=== PATIENT | male | born 1950 | race Two or more races ===

== ENCOUNTER 2019-11-23 21:19 | Inpatient (IN) | payer MEDICARE ==
[~2019-11-23] VITALS: Ht 172.7 cm; Wt 84.8 kg
[2019-11-23 23:04] LABS: BASOPHILS % 0.6 % (0.0-2.0); EOSINOPHILS % 0.7 % (0.0-5.0); HEMATOCRIT. 46.6 % (42.0-52.0); HEMOGLOBIN. 15.5 g/dL (14.0-18.0); LYMPHOCYTES % 26.1 % (20.0-50.0); MEAN CORPUSCULAR HEMOGLOBIN 27.8 pg (28.0-32.0); MEAN CORPUSCULAR VOLUME 83.5 fL (80.0-94.0); MEAN PLATELET VOLUME 8.3 fl (7.4-10.4); MONOCYTES % 7.4 % (2.0-8.0); NEUTROPHILS % 65.2 % (40.0-76.0); PLATELET 208 x1000/uL (130-400); RED BLOOD CELL COUNT 5.58 mill/uL (4.7-6.1)
[2019-11-23 23:12] LABS: CHLORIDE 108 mEq/L (98-107)
[2019-11-23 23:13] LABS: PARTIAL THROMBOPLASTIN TIME 26.6 sec (23.4-31.0); PROTHROMBIN TIME 10.7 sec (9.6-11.0)
[2019-11-23] MEDS ORDERED: ASPIRIN 325MG TABLET PO ONE (23:45)
[2019-11-24] MEDS ORDERED: HYDROCODONE/ACETAMINOPHEN 10/325MG TABLET PO PRN (07:30)
[2019-11-24] MEDS ORDERED: MAGNESIUM/ALUMINUM HYDROXIDE/SIMETHICONE 30ML UDC PO PRN (07:30)
[2019-11-24] MEDS ORDERED: ONDANSETRON HCL 4MG/2ML INJ IV PRN (07:30)
[2019-11-24] MEDS ORDERED: GUAIFENESIN 200MG/10ML SUGAR FREE UDC PO PRN (07:30)
[2019-11-24] MEDS ORDERED: IPRATROPIUM/ALBUTEROL 0.5-3(2.5)MG/3ML NEB HHN PRN (07:30)
[2019-11-24] MEDS ORDERED: DIPHENHYDRAMINE 50MG/ML VIAL IV PRN (07:30)
[2019-11-24] MEDS ORDERED: MORPHINE SULFATE 2 MG/ML CPJ (NOT FOR IM USE) IV PRN (07:30)
[2019-11-24] MEDS ORDERED: DOCUSATE SODIUM 100MG CAPSULE PO PRN (07:30)
[2019-11-24] MEDS ORDERED: ACETAMINOPHEN 325MG TABLET PO PRN (07:30)
[2019-11-24] MEDS ORDERED: CLONIDINE 0.1MG TABLET PO PRN (07:30)
[2019-11-24] MEDS ORDERED: LORAZEPAM 2MG/ML CPJ IV PRN (07:30)
[2019-11-24 09:17] LABS: CLARITY URINE CLOUDY (CLEAR); COLOR URINE YELLOW (YELLOW); KETONES URINE NEGATIVE (NEGATIVE); LEUKOCYTE ESTERASE URINE 2+ (NEGATIVE); NITRITE URINE NEGATIVE (NEGATIVE); OCCULT BLOOD URINE NEGATIVE (NEGATIVE); PH URINE 5.5 (4.5-8.0); PROTEIN URINE TRACE (NEGATIVE); SPECIFIC GRAVITY URINE 1.018 (1.005-1.030)
[2019-11-24 09:27] LABS: *BARBITURATES SCREEN URINE NEGATIVE (NEGATIVE); *BENZODIAZEPINES SCREEN URINE NEGATIVE (NEGATIVE); *COCAINE SCREEN URINE NEGATIVE (NEGATIVE); METHADONE URINE SCREEN NEGATIVE (NEGATIVE); OPIATES URINE SCREEN NEGATIVE (NEGATIVE)
[2019-11-24 09:28] LABS: *AMPHETAMINES SCREEN URINE NEGATIVE (NEGATIVE); CANNABINOID URINE SCREEN NEGATIVE (NEGATIVE); PHENCYCLIDINE URINE SCREEN NEGATIVE (NEGATIVE)
[2019-11-24] MEDS: ENOXAPARIN 40MG/0.4ML SYR SUBCUT SCH (10:00)
[2019-11-24 10:43] LABS: T4 FREE 1.11 ng/dL (0.76-1.46)
[2019-11-24] MEDS: SODIUM CHLORIDE 0.9% INJ 3ML FLUSH IVF SCH (14:00)
[2019-11-24 15:21] LABS: CREATINE KINASE 72 IU/L (39-308)
[2019-11-24 15:23] LABS: CREATINE KINASE MB FRACTION 1.3 ng/mL (0.5-3.6)
[2019-11-24 23:43] LABS: CREATINE KINASE 108 IU/L (39-308)
[2019-11-24 23:56] VITALS: BP 198/94
[2019-11-25] VITALS (12 sets, daily range): BP systolic 85–198; BP diastolic 50–94
[2019-11-25] MEDS ORDERED: HYDRALAZINE 20MG/ML VIAL IV PRN (00:02)
[2019-11-25] MEDS: SODIUM CHLORIDE 0.9% INJ 3ML FLUSH IVF SCH ×3 (05:02→22:58)
[2019-11-25 07:18] LABS: BASOPHILS % 0.6 % (0.0-2.0); EOSINOPHILS % 1.7 % (0.0-5.0); HEMATOCRIT. 41.5 % (42.0-52.0); HEMOGLOBIN. 14.4 g/dL (14.0-18.0); MEAN CORPUSCULAR HEMOGLOBIN 28.9 pg (28.0-32.0); MEAN CORPUSCULAR VOLUME 83.4 fL (80.0-94.0); MEAN PLATELET VOLUME 8.5 fl (7.4-10.4); MONOCYTES % 8.3 % (2.0-8.0); NEUTROPHILS % 61.4 % (40.0-76.0); PLATELET 190 x1000/uL (130-400); RED BLOOD CELL COUNT 4.97 mill/uL (4.7-6.1); RED CELL DISTRIBUTION WIDTH 12.9 % (11.6-14.6)
[2019-11-25 07:27] LABS: CHLORIDE 110 mEq/L (98-107)
[2019-11-25] MEDS: ENOXAPARIN 40MG/0.4ML SYR SUBCUT SCH (09:02)
[2019-11-25] MEDS: ASPIRIN 81MG TABLET PO SCH (13:21)
[2019-11-25 15:21] LABS: ETHANOL BLOOD < 10 mg/dL
[2019-11-25 15:24] LABS: LDL CHOLESTEROL 113 mg/dL (5-100)
[2019-11-25 15:26] LABS: T4 FREE 1.18 ng/dL (0.76-1.46)
[2019-11-25 15:30] LABS: HDL CHOLESTEROL 44 mg/dL (40-59)
[2019-11-25 15:40] LABS: FOLIC ACID (FOLATE) SERUM 9.4 ng/mL (>5.38)
[2019-11-26] VITALS (13 sets, daily range): BP systolic 99–147; BP diastolic 47–94
[2019-11-26] MEDS: SODIUM CHLORIDE 0.9% INJ 3ML FLUSH IVF SCH ×3 (06:08→20:31)
[2019-11-26] MEDS: ASPIRIN 81MG TABLET PO SCH (08:11)
[2019-11-26] MEDS: ENOXAPARIN 40MG/0.4ML SYR SUBCUT SCH (08:11)
[2019-11-26] MEDS: ATORVASTATIN CALCIUM 20MG TABLET PO SCH (20:30)
[2019-11-27] VITALS (12 sets, daily range): BP systolic 103–134; BP diastolic 62–98
[2019-11-27] MEDS: SODIUM CHLORIDE 0.9% INJ 3ML FLUSH IVF SCH ×3 (05:37→21:43)
[2019-11-27] MEDS: CLOPIDOGREL 75MG TABLET PO SCH (08:54)
[2019-11-27] MEDS: ENOXAPARIN 40MG/0.4ML SYR SUBCUT SCH (08:55)
[2019-11-27] MEDS: ATORVASTATIN CALCIUM 20MG TABLET PO SCH (21:47)
[2019-11-28] VITALS (12 sets, daily range): BP systolic 94–154; BP diastolic 44–100
[2019-11-28] MEDS: SODIUM CHLORIDE 0.9% INJ 3ML FLUSH IVF SCH ×3 (06:00→20:49)
[2019-11-28 06:17] LABS: BASOPHILS % 0.6 % (0.0-2.0); EOSINOPHILS % 6.6 % (0.0-5.0); HEMATOCRIT. 40.6 % (42.0-52.0); HEMOGLOBIN. 13.8 g/dL (14.0-18.0); LYMPHOCYTES % 35.3 % (20.0-50.0); MEAN CORPUSCULAR HEMOGLOBIN 28.3 pg (28.0-32.0); MEAN CORPUSCULAR VOLUME 83.3 fL (80.0-94.0); MEAN PLATELET VOLUME 8.1 fl (7.4-10.4); NEUTROPHILS % 49.5 % (40.0-76.0); PLATELET 174 x1000/uL (130-400); RED BLOOD CELL COUNT 4.87 mill/uL (4.7-6.1); RED CELL DISTRIBUTION WIDTH 12.9 % (11.6-14.6)
[2019-11-28 06:55] LABS: CHLORIDE 107 mEq/L (98-107)
[2019-11-28] MEDS: CLOPIDOGREL 75MG TABLET PO SCH (08:15)
[2019-11-28] MEDS: ENOXAPARIN 40MG/0.4ML SYR SUBCUT SCH (08:15)
[2019-11-28] MEDS ORDERED: BARIUM SULFATE 176 GM SUSP.RECON ONE (09:59)
[2019-11-28] MEDS: ATORVASTATIN CALCIUM 20MG TABLET PO SCH (20:49)
[2019-11-29] VITALS (12 sets, daily range): BP systolic 91–144; BP diastolic 57–76
[2019-11-29] MEDS: SODIUM CHLORIDE 0.9% INJ 3ML FLUSH IVF SCH ×3 (06:47→20:54)
[2019-11-29] MEDS: CLOPIDOGREL 75MG TABLET PO SCH (08:38)
[2019-11-29] MEDS: ENOXAPARIN 40MG/0.4ML SYR SUBCUT SCH (08:38)
[2019-11-29] MEDS: ATORVASTATIN CALCIUM 20MG TABLET PO SCH (20:54)
[2019-11-30] VITALS: BP 117/61
[2019-11-30 04:00] VITALS: BP 106/69
[2019-11-30] MEDS: SODIUM CHLORIDE 0.9% INJ 3ML FLUSH IVF SCH (05:26)
[2019-11-30 08:00] VITALS: BP 108/69
[2019-11-30] MEDS: CLOPIDOGREL 75MG TABLET PO SCH (09:20)
[2019-11-30] MEDS: ENOXAPARIN 40MG/0.4ML SYR SUBCUT SCH (09:20)
[2019-11-30 12:00] VITALS: BP 118/56
[2019-11-30] MEDS ORDERED: METF-414 MT (15:17)
[2019-11-30] MEDS ORDERED: ASPI-1497 MT (15:17)
[2019-11-30] MEDS ORDERED: LANC1COM2 MC (15:17)
[2019-11-30] MEDS ORDERED: CLOP75TA4 MT (15:17)
[2019-11-30] MEDS ORDERED: ATOR20TA MT (15:17)
[2019-11-30] MEDS ORDERED: BLOO-1613 MC (15:17)
[2019-11-30] MEDS ORDERED: BLOO1KIT74 TP (15:17)
[2019-11-30 16:00] VITALS: BP 112/68
[2019-11-30] MEDS ORDERED: METFORMIN HCL 500MG TABLET PO SCH (18:00)
== END 2019-11-30 18:00 | disposition home health service (06) | DRG 65 ==
LOC: ER 21:19 → 5EST 11-24 01:53 → EDBEDREQTM 11-24 02:00 → EDBEDREQ 11-24 02:00 → EDBEDREQDT 11-24 02:00 → ENRESERV 11-24 21:40
PROVIDERS: ADMIT Internal Medicine; ATTEND Internal Medicine
DX: I63.9 Cerebral infarction, unspecified (principal); N39.0 Urinary tract infection, site not specified; G81.94 Hemiplegia, unspecified affecting left nondominant side; R47.01 Aphasia; R13.10 Dysphagia, unspecified; I10 Essential (primary) hypertension; E78.5 Hyperlipidemia, unspecified; E78.00 Pure hypercholesterolemia, unspecified; R27.0 Ataxia, unspecified; R47.1 Dysarthria and anarthria; R53.81 Other malaise; G31.9 Degenerative disease of nervous system, unspecified; E11.65 Type 2 diabetes mellitus with hyperglycemia; Z79.899 Other long term (current) drug therapy; Z79.02 Long term (current) use of antithrombotics/antiplatelets; Z82.49 Family history of ischemic heart disease and other diseases of the circulatory system
CPT/HCPCS: 36415; 70544; 70553; 71045; 74230; 80048; 80053; 80061; 80305; 80320; 81003; 82550; 82553; 82607; 82746; 83036; 83880; 84439; 84443; 84481; 84484; 85025; 85379; 92523; 92610; 92611; 93005; 93306; 93880; 93970; 96372; 97162; 97166; 99291; J0360; J1650; G0480